=== PATIENT | female | born 1990 | race Caucasian/White ===

== ENCOUNTER → 2019-12-24 | Outpatient (CLI) | payer BC, OTHER ==
[~2019-12-24] MED LIST: BENTYL 20 MG TA20 M1 PO; CIPRO500 MG PO; PROBIOTIC1 EAC1 PO; ZOFRAN ODT4 MG PO
== END ==
LOC: LAB 14:21
PROVIDERS: ATTEND Anesthesiology
DX: Z01.812 Encounter for preprocedural laboratory examination (principal); Z20.828 Contact with and (suspected) exposure to other viral communicable diseases